=== PATIENT | female | born 1990 | race Caucasian/White ===

== ENCOUNTER 2019-07-05 20:55 | Emergency (ER) | payer SELFPAY ==
[~2019-07-05] VITALS: Ht 170.2 cm; Wt 68.0 kg
[~2019-07-05 20:55] MED LIST: ACET650S13 PO; ACHD5005 PO; ACHYD1T PO; FLUC200T45 PO; IBP800T PO; NITR100C3 PO; PREN1TAB14 PO
[2019-07-05] MEDS ORDERED: NS IV 1000 ML 1,000 ML IV SCH (21:22)
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
[2019-07-05] MEDS ORDERED: KETOROLAC 30 MG/ML VIAL IVP ONE (21:30)
[2019-07-05] MEDS ORDERED: IOHEXOL 350 MG/ML 100 ML (OMNIPAQUE 350) VIAL IV ONE (21:30)
[2019-07-05] MEDS ORDERED: HOLD METFORMIN - RECEIVED CONTRAST 20 ML VIAL IV SCH (21:30)
[2019-07-05] MEDS ORDERED: NS 100 ML (IVPB) BAG IV ONE (21:30)
[2019-07-05 22:00] LABS: BASOPHILS % (AUTO) 0 % (0-10); EOSINOPHILS # (AUTO) 0.1 10^3/uL (0.0-0.3); EOSINOPHILS % (AUTO) 1 % (0-10); HEMATOCRIT 36 % (35-52); HEMOGLOBIN 12.6 G/DL (11.5-16.0); LYMPHOCYTES # (AUTO) 2.8 X 10^3 (1.0-4.0); LYMPHOCYTES % (AUTO) 28 % (12-44); MEAN CORPUSCULAR HEMOGLOBIN 30 PG (25-34); MEAN CORPUSCULAR HGB CONC 36 G/DL (32-36); MEAN CORPUSCULAR VOLUME 86 FL (80-99); MEAN PLATELET VOLUME 10.5 FL (7.4-10.4); MONOCYTES # (AUTO) 0.6 X 10^3 (0.0-1.0); MONOCYTES % (AUTO) 6 % (0-12); NEUTROPHILS # (AUTO) 6.6 X 10^3 (1.8-7.8); NEUTROPHILS % (AUTO) 65 % (42-75); PLATELET COUNT 172 10^3/uL (130-400); WHITE BLOOD COUNT 10.1 10^3/uL (4.3-11.0)
[2019-07-05 22:00] LABS: BILIRUBIN,URINE NEGATIVE (NEGATIVE); CLARITY,URINE SLIGHTLY CLOUDY; COLOR,URINE YELLOW; GLUCOSE, URINE (UA) NEGATIVE (NEGATIVE); KETONES,URINE NEGATIVE (NEGATIVE); LEUKOCYTE ESTERASE ,URINE 1+ (NEGATIVE); NITRITE,URINE NEGATIVE (NEGATIVE); PH,URINE 5 (5-9); PROTEIN,URINE NEGATIVE (NEGATIVE); UROBILINOGEN,URINE NORMAL (NORMAL)
[2019-07-05 22:07] LABS: BACTERIA,URINE FEW /HPF; WBC,URINE RARE /HPF
[2019-07-05 22:07] LABS: ALANINE AMINOTRANSFERASE 24 U/L (0-55); ALBUMIN 4.2 GM/DL (3.2-4.5); ALKALINE PHOSPHATASE 100 U/L (40-136); BILIRUBIN,TOTAL 0.3 MG/DL (0.1-1.0); BUN/CREATININE RATIO 18; CALCIUM 9.3 MG/DL (8.5-10.1); CARBON DIOXIDE 21 MMOL/L (21-32); CHLORIDE 107 MMOL/L (98-107); CREATININE SERUM 0.74 MG/DL (0.60-1.30); GFR ESTIMATED > 60; GLUCOSE 104 MG/DL (70-105); POTASSIUM 3.7 MMOL/L (3.6-5.0); SODIUM 139 MMOL/L (135-145)
[2019-07-05] MEDS ORDERED: HYDROcodone/APAP 5 MG/325 MG (LORTAB) TAB PO ONE (23:00)
[2019-07-05] MEDS ORDERED: ACHD5005 PO (23:45)
[2019-07-05 23:52] VITALS: BP 121/90
--- NOTE | 2019-07-06 07:55 | Diagnostic Imaging Report ---
INDICATION: Chest wall discomfort, trauma chest. TECHNIQUE: Two view chest 2:16 PM CORRELATION STUDY: None FINDINGS: The heart size, mediastinal configuration and pulmonary vasculature are within normal limits. The lungs are clear with no consolidating infiltrate. There is no significant pleural effusion or pneumothorax. No acute displaced fracture. IMPRESSION: 1. No radiographic evidence for acute abnormality of the chest. Dictated by: Dictated on workstation # [id number]
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
== END 2019-07-05 23:53 | disposition home or self-care (01) ==
LOC: EDUNIT# 20:55 → ER 20:57
DX: S20.211A Contusion of right front wall of thorax, initial encounter (principal); R10.9 Unspecified abdominal pain; R40.2142 Coma scale, eyes open, spontaneous, at arrival to emergency department; R40.2252 Coma scale, best verbal response, oriented, at arrival to emergency department; R40.2362 Coma scale, best motor response, obeys commands, at arrival to emergency department; Z88.1 Allergy status to other antibiotic agents; Z88.8 Allergy status to other drugs, medicaments and biological substances; Z90.49 Acquired absence of other specified parts of digestive tract; Y04.2XXA Assault by strike against or bumped into by another person, initial encounter
CPT/HCPCS: 36415; 71046; 74177; 80053; 81000; 84703; 85025; 96361; 96374

== ENCOUNTER 2019-12-08 16:35 | Emergency (ER) | payer MEDICAID ==
[~2019-12-08] VITALS: Ht 165 cm; Wt 70.5 kg
--- NOTE | 2019-12-08 16:49 | ED Chest Pain ---
General Chief Complaint: Chest Pain Stated Complaint: CHEST PAIN Source: patient Exam Limitations: no limitations History of Present Illness Date Seen by Provider: Dec 08, 2019 Time Seen by Provider: 16:43 Initial Comments To ER with reports of sharp left-sided chest pain sudden in onset while standing at work talking. The pain radiates down the left arm. She's had this before but never this bad. Breathing makes the pain worse. Touching the left upper outer ch est makes the pain worse. 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 NTG SL INSTRUCTOR DRAMATIC ARTS: No Associated Symptoms: shortness of breath Allergies and Home Medications Allergies Coded Allergies: clindamycin (Verified Allergy, Unknown, 10/21/07) ranitidine (Verified Allergy, Unknown, 10/21/07) Patient Home Medication List Home Medication List Reviewed: Yes Review of Systems Review of Systems Constitutional: see HPI; No chills, No fever EENTM: No Symptoms Reported Respiratory: See HPI; Denies Cough Cardiovascular: No Symptoms Reported Gastrointestinal: See HPI Genitourinary: No Symptoms Reported Musculoskeletal: see HPI, back pain Skin: no symptoms reported Psychiatric/Neurological: No Symptoms Reported Endocrine: No Symptoms Reported Hematologic/Lymphatic: No Symptoms Reported Past Mfdaxpy-Wbxlsf-Fhzemc Hx Patient Social History Alcohol Use: Occasionally Uses Recreational Drug Use: No Smoking Status: Never a Smoker 2nd Hand Smoke Exposure: No Recent Foreign Travel: No Contact w/Someone Who Travel: No Recent Hopitalizations: Yes (vaginal delivery 2009) Physical Abuse: No Sexual Abuse: No Mistreated: No Fear: No Immunizations Up To Date Date of Pneumonia Vaccine: Sep 29, 2011 Date of Influenza Vaccine: Sep 15, 2011 Past Medical History Surgeries: Yes (appendectomy ) Appendectomy Respiratory: No Cardiac: No Neurological: No Reproductive Disorders: No Sexually Transmitted Disease: Yes (herpes) Genitourinary: No Gastrointestinal: No Musculoskeletal: No Endocrine: No Cancer: No Psychosocial: No Blood Disorders: No Physical Exam Vital Signs Vital Signs - First Documented 12/08/19 16:44 Temp 36.9 Pulse 74 Resp 18 B/P (MAP) 141/70 (93) Pulse Ox 100 O2 Delivery Room Air Capillary Refill : Less Than 3 Seconds Height, Weight, BMI Height: 5'7.00" Weight: 150lbs. oz. 68.426226mp; BMI Method:Stated General Appearance: No Apparent Distress, WD/WN Respiratory: Normal Breath Sounds, No Accessory Muscle Use, No Respiratory Distress, Other (left upper outer chest wall tenderness to palpation) Cardiovascular: Regular Rate, Rhythm, Normal Peripheral Pulses Gastrointestinal: Normal Bowel Sounds, Non Tender, Soft Extremity: Normal Capillary Refill, Normal Inspection Neurologic/Psychiatric: Alert, Oriented x3 Skin: Normal Color, Warm/Dry Progress/Results/Core Measures Results/Orders Lab Results Laboratory Tests Test 12/08/19 16:49 Range/Units White Blood Count 5.0 4.3-11.0 10^3/uL Red Blood Count 4.34 L 4.35-5.85 10^6/uL Hemoglobin 13.0 11.5-16.0 G/DL Hematocrit 37 35-52 % Mean Corpuscular Volume 86 80-99 FL Mean Corpuscular Hemoglobin 30 25-34 PG Mean Corpuscular Hemoglobin Concent 35 32-36 G/DL Red Cell Distribution Width 12.5 10.0-14.5 % Platelet Count 185 130-400 10^3/uL Mean Platelet Volume 9.9 7.4-10.4 FL Neutrophils (%) (Auto) 50 42-75 % Lymphocytes (%) (Auto) 37 12-44 % Monocytes (%) (Auto) 10 0-12 % Eosinophils (%) (Auto) 2 0-10 % Basophils (%) (Auto) 1 0-10 % Neutrophils # (Auto) 2.5 1.8-7.8 X 10^3 Lymphocytes # (Auto) 1.9 1.0-4.0 X 10^3 Monocytes # (Auto) 0.5 0.0-1.0 X 10^3 Eosinophils # (Auto) 0.1 0.0-0.3 10^3/uL Basophils # (Auto) 0.0 0.0-0.1 10^3/uL Prothrombin Time 12.8 12.2-14.7 SEC INR Comment 0.9 0.8-1.4 Activated Partial Thromboplast Time 27 24-35 SEC D-Dimer 0.44 0.00-0.49 UG/ML Sodium Level 138 135-145 MMOL/L Potassium Level 3.6 3.6-5.0 MMOL/L Chloride Level 105 98-107 MMOL/L Carbon Dioxide Level 20 L 21-32 MMOL/L Anion Gap 13 5-14 MMOL/L Blood Urea Nitrogen 12 7-18 MG/DL Creatinine 0.73 0.60-1.30 MG/DL Estimat Glomerular Filtration Rate > 60 BUN/Creatinine Ratio 16 Glucose Level 84 70-105 MG/DL Calcium Level 9.1 8.5-10.1 MG/DL Corrected Calcium 8.9 8.5-10.1 MG/DL Magnesium Level 1.8 1.6-2.4 MG/DL Total Bilirubin 0.3 0.1-1.0 MG/DL Aspartate Amino Transf (AST/SGOT) 32 5-34 U/L Alanine Aminotransferase (ALT/SGPT) 37 0-55 U/L Alkaline Phosphatase 117 40-136 U/L Myoglobin 35.9 10.0-92.0 NG/ML Troponin I < 0.028 <0.028 NG/ML B-Type Natriuretic Peptide < 10.0 <100.0 PG/ML Total Protein 7.4 6.4-8.2 GM/DL Albumin 4.3 3.2-4.5 GM/DL Micro Results Microbiology 12/08/19 Influenza Types A,B Antigen (REY) - Final, Complete My Orders Orders - LAZARO RHODES ENVIRONMENTAL GEOLOGIST Cbc With Automated Diff (12/08/19 16:44) Magnesium (12/08/19 16:44) Chest 1 View, Ap/Pa Only (12/08/19 16:44) Ekg Tracing (12/08/19 16:44) Comprehensive Metabolic Panel (12/08/19 16:44) Myoglobin Serum (12/08/19 16:44) Protime With Inr (12/08/19 16:44) Partial Thromboplastin Time (12/08/19 16:44) O2 (12/08/19 16:44) Monitor-Rhythm Ecg Trace Only (12/08/19 16:44) Lipid Panel (12/09/19 06:00) Ed Iv/Invasive Line Start (12/08/19 16:44) BNP (12/08/19 16:44) Fibrin Degradation Products (12/08/19 16:44) Troponin I (12/08/19 16:44) Influenza A And B Antigens (12/08/19 16:50) Ketorolac Injection (Toradol Injection) (12/08/19 17:00) Medications Given in ED Current Medications Medications Dose Ordered Sig/Saúl Route Start Time Stop Time Status Last Admin Dose Admin Ketorolac Tromethamine 15 mg ONCE ONCE IVP 12/08/19 17:00 12/08/19 17:01 DC 12/08/19 17:17 15 MG Vital Signs/I&O 12/08/19 12/08/19 16:44 16:44 Temp 36.9 Pulse 74 Resp 18 B/P (MAP) 141/70 (93) Pulse Ox 100 O2 Delivery Room Air Departure Impression Primary Impression: Chest wall pain Disposition: HOME, SELF-CARE Condition: Stable Departure-Patient Inst. Decision time for Depature: 17:43 Referrals: ÁLVARO GALLEGOS MD (PCP/Family) Primary Care Physician Patient Instructions: Chest Pain That Is Not Caused by the Heart (DC) Add. Discharge Instructions: 1. Return to ER for any concerns 2. Follow-up with your doctor next week All discharge instructions reviewed with patient and/or family. Voiced understanding. Copy Copies To 1: ÁLVARO GALLEGOS MD, PETER J APRN Dec 08, 2019 16:49
[2019-12-08] MEDS ORDERED: OSEL75CA15 (16:53)
[2019-12-08 16:59] LABS: BASOPHILS % (AUTO) 1 % (0-10); EOSINOPHILS # (AUTO) 0.1 10^3/uL (0.0-0.3); EOSINOPHILS % (AUTO) 2 % (0-10); HEMATOCRIT 37 % (35-52); LYMPHOCYTES # (AUTO) 1.9 X 10^3 (1.0-4.0); LYMPHOCYTES % (AUTO) 37 % (12-44); MEAN CORPUSCULAR HEMOGLOBIN 30 PG (25-34); MEAN CORPUSCULAR HGB CONC 35 G/DL (32-36); MEAN CORPUSCULAR VOLUME 86 FL (80-99); MEAN PLATELET VOLUME 9.9 FL (7.4-10.4); MONOCYTES # (AUTO) 0.5 X 10^3 (0.0-1.0); MONOCYTES % (AUTO) 10 % (0-12); NEUTROPHILS # (AUTO) 2.5 X 10^3 (1.8-7.8); NEUTROPHILS % (AUTO) 50 % (42-75); PLATELET COUNT 185 10^3/uL (130-400); RED CELL DISTRIBUTION WIDTH 12.5 % (10.0-14.5)
[2019-12-08] MEDS ORDERED: KETOROLAC 30 MG/ML VIAL IVP ONE (17:00)
--- NOTE | 2019-12-08 17:05 | Diagnostic Imaging Report ---
EXAMINATION: Chest, 1 view. HISTORY: Chest pain. COMPARISON: 07/05/2019. FINDINGS: The lungs are clear without edema or pneumonia. No pleural effusion or pneumothorax. Heart size is normal. IMPRESSION: Clear lungs. Dictated by: Dictated on workstation # [id number]
[2019-12-08 17:08] LABS: INR 0.9 (0.8-1.4); PROTHROMBIN TIME PATIENT 12.8 SEC (12.2-14.7)
[2019-12-08 17:17] LABS: ALANINE AMINOTRANSFERASE 37 U/L (0-55); ALBUMIN 4.3 GM/DL (3.2-4.5); ALKALINE PHOSPHATASE 117 U/L (40-136); BILIRUBIN,TOTAL 0.3 MG/DL (0.1-1.0); BUN/CREATININE RATIO 16; CALCIUM 9.1 MG/DL (8.5-10.1); CARBON DIOXIDE 20 MMOL/L (21-32); CHLORIDE 105 MMOL/L (98-107); CREATININE SERUM 0.73 MG/DL (0.60-1.30); GFR ESTIMATED > 60; GLUCOSE 84 MG/DL (70-105); MAGNESIUM 1.8 MG/DL (1.6-2.4); POTASSIUM 3.6 MMOL/L (3.6-5.0); SODIUM 138 MMOL/L (135-145); TOTAL PROTEIN 7.4 GM/DL (6.4-8.2)
[2019-12-08 17:59] VITALS: BP 109/62
== END 2019-12-08 17:59 | disposition home or self-care (01) ==
LOC: EDUNIT# 16:35 → ER 16:37
DX: R07.89 Other chest pain (principal); Z88.1 Allergy status to other antibiotic agents; Z88.8 Allergy status to other drugs, medicaments and biological substances; Z90.49 Acquired absence of other specified parts of digestive tract
CPT/HCPCS: 36415; 71045; 80053; 83735; 83874; 83880; 84484; 85025; 85379; 85610; 85730; 87804; 93005; 93041

== ENCOUNTER 2019-12-23 09:20 | Emergency (ER) | payer MEDICAID ==
[~2019-12-23] VITALS: Ht 165.1 cm; Wt 69.0 kg
[~2019-12-23 09:20] MED LIST changes: +OSEL75CA15
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
--- NOTE | 2019-12-23 09:43 | Diagnostic Imaging Report ---
INDICATION: Injury, right foot pain. FINDINGS: 3 views of the right foot shows no fracture, dislocation or other abnormality. IMPRESSION: Normal right foot. Dictated by: Dictated on workstation # [id number]
[2019-12-23] MEDS ORDERED: MELO15TA14 PO (09:48)
[2019-12-23 09:54] VITALS: BP 112/81
== END 2019-12-23 09:53 | disposition home or self-care (01) ==
LOC: EDUNIT# 09:20 → ER 09:21
DX: S93.501A Unspecified sprain of right great toe, initial encounter (principal); S90.31XA Contusion of right foot, initial encounter; Z88.1 Allergy status to other antibiotic agents; Z88.8 Allergy status to other drugs, medicaments and biological substances; W55.89XA Other contact with other mammals, initial encounter
CPT/HCPCS: 73630

== ENCOUNTER 2020-08-25 11:46 | Emergency (ER) | payer MEDICAID ==
[~2020-08-25] VITALS: Ht 162 cm; Wt 66.8 kg
[~2020-08-25 11:46] MED LIST changes: +MELO15TA14 PO
[2020-08-25] MEDS ORDERED: ACETAMINOPHEN 325 MG TABLET PO STA (12:05)
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
--- NOTE | 2020-08-25 12:54 | Diagnostic Imaging Report ---
INDICATION: Wrist pain COMPARISON: None available TECHNIQUE: 3 radiographs of the right wrist dated 08/25/2020. FINDINGS: No acute fracture or dislocation. No destructive osseous process. Carpal alignment is well-maintained. IMPRESSION: No acute osseous abnormality. Dictated by: Dictated on workstation # [id number]
--- NOTE | 2020-08-25 12:54 | Diagnostic Imaging Report ---
INDICATION: Ankle pain COMPARISON: None available TECHNIQUE: 3 radiographs of right ankle dated 08/25/2020. FINDINGS: No acute fracture or dislocation. No destructive osseous process. The talar dome is unremarkable. Ankle mortise is symmetric. No suspicious radiopaque foreign body. Small plantar calcaneal enthesophyte. IMPRESSION: No acute osseous abnormality. Dictated by: Dictated on workstation # [id number]
[2020-08-25 13:14] VITALS: BP 129/70
== END 2020-08-25 13:14 | disposition home or self-care (01) ==
LOC: EDUNIT# 11:46 → ER 11:48
DX: S63.501A Unspecified sprain of right wrist, initial encounter (principal); S93.401A Sprain of unspecified ligament of right ankle, initial encounter; R40.2410 Glasgow coma scale score 13-15, unspecified time; Z88.1 Allergy status to other antibiotic agents; Z88.8 Allergy status to other drugs, medicaments and biological substances; V29.9XXA Motorcycle rider (driver) (passenger) injured in unspecified traffic accident, initial encounter
CPT/HCPCS: 73110; 73610

== ENCOUNTER → 2020-10-30 | Outpatient (CLI) | payer MEDICAID ==
[~2020-10-30] MED LIST changes: +CATHETER FLUSH 10 ML SYR IV PRN
--- NOTE | 2020-10-30 11:33 | Diagnostic Imaging Report ---
Hepatobiliary scan at 8:08. Indication: Abdominal pain This study was performed following administration of 5.4 mCi at 99M technetium Choletec. One can of censure was also administered for the calculation ejection fraction. There are no prior nuclear medicine or ultrasound exams available for comparison. There is uptake of the radiotracer by the gallbladder for 15 minutes. This would weigh against diagnosis of acute cholecystitis. There is also extension of the radiotracer into the small bowel indicating that common bile duct is not obstructed. Ejection fraction is at 81.1% (normal greater than 35%). Impression: 1. There is no evidence for acute cholecystitis or for obstruction of the common bile duct. 2. The ejection fraction is 81.1% and well within normal limits. Dictated by: Dictated on workstation # [id number]
== END ==
LOC: CARD 09:00
PROVIDERS: ATTEND Nurse Practitioner Family
DX: R10.9 Unspecified abdominal pain (principal); R11.2 Nausea with vomiting, unspecified
CPT/HCPCS: 78227; A9537

== ENCOUNTER → 2020-11-12 | Outpatient (CLI) | payer MEDICAID ==
[~2020-11-12] MED LIST changes: -CATHETER FLUSH 10 ML SYR IV PRN; +HOLD METFORMIN - RECEIVED CONTRAST 20 ML VIAL IV SCH; +IOHEXOL 350 MG/ML 100 ML (OMNIPAQUE 350) VIAL IV ONE; +NS 100 ML (IVPB) BAG IV ONE
[2020-11-12 08:04] LABS: BUN/CREATININE RATIO 18; GFR ESTIMATED > 60
--- NOTE | 2020-11-12 09:19 | Diagnostic Imaging Report ---
PROCEDURE: CT abdomen and pelvis with contrast. TECHNIQUE: Multiple contiguous axial images were obtained through the abdomen and pelvis after administration of intravenous contrast. Auto Exposure Controls were utilized during the CT exam to meet ALARA standards for radiation dose reduction. All CT scans use one or more of the following dose optimizing techniques: automated exposure control, MA and/or KvP adjustment based on patient size and exam type or iterative reconstruction. INDICATION: Abdominal pain and weight loss. COMPARISON: 07/05/2019. FINDINGS: The lung bases are clear. The liver and gallbladder are unremarkable. There is no biliary ductal dilatation or mass. The pancreas and spleen are unremarkable. No adrenal mass is identified. The kidneys are unremarkable. The aorta is non-aneurysmal. No central retroperitoneal or mesenteric lymphadenopathy is identified. The small and large bowel loops are of normal caliber. There is no obstruction. There is an IUD within the uterus. The bladder is decompressed. No pelvic lymphadenopathy is identified. The bony structures are unremarkable. IMPRESSION: Unremarkable CT of the abdomen and pelvis with contrast. Dictated by: Dictated on workstation # [id number]
== END ==
LOC: RAD 08:15
PROVIDERS: ATTEND Surgery
DX: R10.9 Unspecified abdominal pain (principal); R63.4 Abnormal weight loss
CPT/HCPCS: 36415; 74177; 82565; 84520

== ENCOUNTER → 2021-01-01 | Outpatient (CLI) | payer MEDICAID ==
[~2021-01-01] MED LIST changes: -HOLD METFORMIN - RECEIVED CONTRAST 20 ML VIAL IV SCH; -IOHEXOL 350 MG/ML 100 ML (OMNIPAQUE 350) VIAL IV ONE; -NS 100 ML (IVPB) BAG IV ONE
--- NOTE | 2021-01-01 10:33 | Diagnostic Imaging Report ---
PROCEDURE: US Non-ob pelvis comp/trans. TECHNIQUE: Multiple realtime grayscale images were obtained of the pelvis in various projections endovaginally. Transabdominal imaging was also performed. INDICATION: Pelvic pain. FINDINGS: The previous pelvic ultrasound exam of 12/10/2007 failed to show any sign of an acute abnormality. On this exam, the uterus is nongravid and anteverted and not enlarged measuring 8.7 x 4.1 x 4.6 cm. The endometrial lining is slightly thickened measuring 12 mm (normal 5 mm or less). This finding is nonspecific. Correlation with the patient's menstrual cycle would be recommended. There is an IUD within the endometrium in the body/fundus of the uterus. The IUD seems to be in good position. Both ovaries were identified. There is a 2.0 x 1.8 x 1.5 cm hypoechoic lesion with internal echoes associated with the right ovary. I suspect that this is an ovarian cyst which has been complicated by infection and/or hemorrhage. The left ovary is generally unremarkable. There is no solid pelvic mass or free fluid collection noted. IMPRESSION: 1. There is a small slightly complicated cyst associated with the right ovary. There is no acute pelvic abnormality noted, otherwise. 2. If further evaluation is desired, then a short-term (4-6 week) follow-up exam would be recommended. 3. There is an IUD within the endometrium of the body/fundus of the uterus. The IUD seems to be in good position. Dictated by: Dictated on workstation # [id number]
== END ==
LOC: RAD 09:00
PROVIDERS: ATTEND Surgery
DX: N83.201 Unspecified ovarian cyst, right side (principal)
CPT/HCPCS: 76830; 76856

== ENCOUNTER 2021-07-10 23:53 | Emergency (ER) | payer MEDICAID ==
[~2021-07-10] VITALS: Ht 163 cm; Wt 59.9 kg
[2021-07-11] MEDS ORDERED: ONDANSETRON 4 MG/2 ML (SDV) Z0FRAN IVP ONE (00:15)
[2021-07-11] MEDS ORDERED: LACTATED RINGERS 1,000 ML IV ONE (00:15)
[2021-07-11 00:32] LABS: ALBUMIN 4.2 GM/DL (3.2-4.5); POTASSIUM 3.3 MMOL/L (3.6-5.0)
[2021-07-11 00:34] LABS: CALCIUM 9.5 MG/DL (8.5-10.1)
[2021-07-11 00:35] LABS: TOTAL PROTEIN 7.2 GM/DL (6.4-8.2)
[2021-07-11 00:37] LABS: BILIRUBIN,TOTAL 0.9 MG/DL (0.1-1.0)
[2021-07-11 00:39] LABS: CREATININE SERUM 0.74 MG/DL (0.60-1.30)
[2021-07-11 00:41] LABS: BASOPHILS % (AUTO) 0 % (0-10); MAGNESIUM 1.6 MG/DL (1.6-2.4); MEAN CORPUSCULAR HEMOGLOBIN 31 pg (25-34); MEAN CORPUSCULAR HGB CONC 35 g/dL (32-36)
[2021-07-11 00:43] LABS: EOSINOPHILS % (AUTO) 0 % (0-10); HEMATOCRIT 39 % (35-52); HEMOGLOBIN 13.6 g/dL (11.5-16.0); LYMPHOCYTES # (AUTO) 1.2 10^3/uL (1.0-4.0); LYMPHOCYTES % (AUTO) 11 % (12-44); MEAN CORPUSCULAR VOLUME 88 fL (80-99); MEAN PLATELET VOLUME 10.6 fL (9.0-12.2); MONOCYTES # (AUTO) 0.5 10^3/uL (0.0-1.0); MONOCYTES % (AUTO) 5 % (0-12); NEUTROPHILS # (AUTO) 9.1 10^3/uL (1.8-7.8); NEUTROPHILS % (AUTO) 84 % (42-75); PLATELET COUNT 143 10^3/uL (130-400); WHITE BLOOD COUNT 10.9 10^3/uL (4.3-11.0)
--- NOTE | 2021-07-11 00:51 | ED Cough/URI ---
General Chief Complaint: Cough/Cold/Flu Symptoms Stated Complaint: VOMITING,CONGESTION Nursing Triage Note: PT TO RM 8 VIA WC W C/O SINUS PRESSURE, NASAL CONGESTION, AND N/V SX THIS AM. 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 Source: patient History of Present Illness Date Seen by Provider: Jul 11, 2021 Time Seen by Provider: 00:03 Initial Comments PT ARRIVES VIA POV FROM HOME STATES SHE WOKE UP THIS AM WITH NASAL CONGESTION ABOUT 2 HOURS AGO, SHE BEGAN HAVING NAUSEA/"VOMITING"--ACTUALLY ONLY DRY HEAVES NO DIARRHEA NO ABDOMINAL PAIN NO FEVER NO SIGNIFICANT COUGH NO LOSS OF TASTE/SMELL NO HEADACHE NO BODY ACHES NO SORE THROAT NO FATIGUE PT HAS NOT BEEN VACCINATED FOR COVID-19 PT WORKS AT [employer] NO CHRONIC ILLNESSES LIVES AT HOME WITH AND 5 CHILDREN--ALL OF THEM HAD NAUSEA/VOMITING AND HEADACHE ON WEDNESDAY, ALL GOT TESTED THE SAME DAY FOR COVID AND ALL NEGATIVE. PCP: DR. GALLEGOS Allergies and Home Medications Allergies Coded Allergies: latex (Verified Allergy, Severe, SWELLING, 07/11/21) clindamycin (Verified Allergy, Unknown, 10/21/07) ranitidine (Verified Allergy, Unknown, 10/21/07) Home Medications Meloxicam 15 Mg Tablet, 15 MG PO DAILY Prescribed by: ÁLVARO WILKINSON on 12/23/19 0948 Ondansetron 4 Mg Tab.rapdis, 4 MG PO Q4H Prescribed by: ÁLVARO WILKINSON on 07/11/21 0101 Patient Home Medication List Home Medication List Reviewed: Yes Review of Systems Review of Systems Constitutional: no symptoms reported EENTM: see HPI, nose congestion; No throat pain Respiratory: no symptoms reported; No cough, No short of breath Cardiovascular: no symptoms reported Gastrointestinal: see HPI; No abdominal pain, No diarrhea; nausea, vomiting Genitourinary: no symptoms reported; No decreased output : No (IUD IN PLACE) LMP: Jun 25, 2021 Musculoskeletal: no symptoms reported Skin: no symptoms reported Psychiatric/Neurological: No Symptoms Reported Hematologic/Lymphatic: No Symptoms Reported Immunological/Allergic: no symptoms reported Past Skjrmmw-Ksnmhp-Whtbpw Hx Patient Social History Tobacco Use?: No Smoking Status: Never a Smoker Substance use?: No Alcohol Use?: Yes Alcohol Frequency: Once in a while Pt feels they are or have been: No Past Medical History Surgery/Hospitalization HX: CHOLECYSTECTOMY APPENDECTOMY Surgeries: Yes Appendectomy, Gallbladder Respiratory: No Cardiac: No Neurological: No Last Menstrual Period: Jun 25, 2021 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 oz. 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, no motor/sensory deficits, alert, normal mood/affect, oriented x 3 Skin: normal color, warm/dry; No rash; tattoos/piercings Progress/Results/Core Measures Suspected Sepsis SIRS Temperature: Pulse: 89 Respiratory Rate: 18 Laboratory Tests 07/11/21 00:05: White Blood Count 10.9 Blood Pressure 106 /68 Mean: 81 Laboratory Tests 07/11/21 00:05: Creatinine 0.74, Platelet Count 143, Total Bilirubin 0.9 Results/Orders Lab Results Laboratory Tests Test 07/11/21 00:05 Range/Units White Blood Count 10.9 4.3-11.0 10^3/uL Red Blood Count 4.40 3.80-5.11 10^6/uL Hemoglobin 13.6 11.5-16.0 g/dL Hematocrit 39 35-52 % Mean Corpuscular Volume 88 80-99 fL Mean Corpuscular Hemoglobin 31 25-34 pg Mean Corpuscular Hemoglobin Concent 35 32-36 g/dL Red Cell Distribution Width 11.6 10.0-14.5 % Platelet Count 143 130-400 10^3/uL Mean Platelet Volume 10.6 9.0-12.2 fL Immature Granulocyte % (Auto) 0 % Neutrophils (%) (Auto) 84 H 42-75 % Lymphocytes (%) (Auto) 11 L 12-44 % Monocytes (%) (Auto) 5 0-12 % Eosinophils (%) (Auto) 0 0-10 % Basophils (%) (Auto) 0 0-10 % Neutrophils # (Auto) 9.1 H 1.8-7.8 10^3/uL Lymphocytes # (Auto) 1.2 1.0-4.0 10^3/uL Monocytes # (Auto) 0.5 0.0-1.0 10^3/uL Eosinophils # (Auto) 0.0 0.0-0.3 10^3/uL Basophils # (Auto) 0.0 0.0-0.1 10^3/uL Immature Granulocyte # (Auto) 0.0 0.0-0.1 10^3/uL Percent Immature Platelet Fraction 3.0 0.0-7.6 % Erythrocyte Sedimentation Rate 11 0-20 MM/HR Sodium Level 139 135-145 MMOL/L Potassium Level 3.3 L 3.6-5.0 MMOL/L Chloride Level 105 98-107 MMOL/L Carbon Dioxide Level 23 21-32 MMOL/L Anion Gap 11 5-14 MMOL/L Blood Urea Nitrogen 9 7-18 MG/DL Creatinine 0.74 0.60-1.30 MG/DL Estimat Glomerular Filtration Rate 91 BUN/Creatinine Ratio 12 Glucose Level 111 H 70-105 MG/DL Calcium Level 9.5 8.5-10.1 MG/DL Corrected Calcium 9.3 8.5-10.1 MG/DL Magnesium Level 1.6 1.6-2.4 MG/DL Total Bilirubin 0.9 0.1-1.0 MG/DL Aspartate Amino Transf (AST/SGOT) 29 5-34 U/L Alanine Aminotransferase (ALT/SGPT) 44 0-55 U/L Alkaline Phosphatase 75 40-136 U/L Total Creatine Kinase 72 29-168 U/L C-Reactive Protein High Sensitivity 0.68 H 0.00-0.50 MG/DL Total Protein 7.2 6.4-8.2 GM/DL Albumin 4.2 3.2-4.5 GM/DL Procalcitonin 0.02 <0.10 NG/ML Serum Test, Qualitative NEGATIVE NEGATIVE Influenza Type A (RT-PCR) Not Detected Not Detecte Influenza Type B (RT-PCR) Not Detected Not Detecte SARS-CoV-2 RNA (RT-PCR) Not Detected Not Detecte My Orders Orders - ÁLVARO WILKINSON DO Ed Iv/Invasive Line Start (07/11/21 00:04) Chest 1 View, Ap/Pa Only (07/11/21 00:04) Comprehensive Metabolic Panel (07/11/21 00:04) Creatine Kinase (07/11/21 00:04) Hs C Reactive Protein (07/11/21 00:04) Hcg,Qualitative Serum (07/11/21 00:04) Magnesium (07/11/21 00:04) Erythrocyte Sedimentation Rate (07/11/21 00:04) Ed Iv/Invasive Line Start (07/11/21 00:04) Lactated Ringers (Lr 1000 Ml Iv Solution (07/11/21 00:15) Ondansetron Injection (Zofran Injectio (07/11/21 00:15) Procalcitonin (Pct) (07/11/21 00:04) Covid 19 Inhouse Test (07/11/21 00:04) Influenza A And B By Pcr (07/11/21 00:04) Isolation Central Supply Req (07/11/21 00:04) Cbc With Automated Diff (07/11/21 00:36) Rx-Ondansetron Po (Rx-Zofran Po) (07/11/21 01:05) Medications Given in ED Current Medications Medications Dose Ordered Sig/Saúl Route Start Time Stop Time Status Last Admin Dose Admin Lactated Ringer's 1,000 ml @ 0 mls/hr Q0M ONCE IV 07/11/21 00:15 07/11/21 00:16 DC 07/11/21 00:19 0 MLS/HR Ondansetron HCl 4 mg ONCE ONCE IVP 07/11/21 00:15 07/11/21 00:16 DC 07/11/21 00:19 4 MG Vital Signs/I&O 07/11/21 07/11/21 00:06 00:06 Temp 37.0 Pulse 89 Resp 18 B/P (MAP) 106/68 (81) Pulse Ox 98 O2 Delivery Room Air Room Air Capillary Refill : Less Than 3 Seconds Blood Pressure Mean: 81 Progress Note : Progress Note PLACED IN ISOLATION ROOM PPE WORN AT ALL TIMES COVID-19 TESTING PERFORMED GIVEN IV FLUIDS AND ZOFRAN WITH IMPROVEMENT IN SYMPTOMS NO FEVER NO COUGH NO DYSPNEA NO HYPOXIA NO VOMITING OR DIARRHEA Diagnostic Imaging Comments CXR--NO ACUTE PROCESS, PENDING RADIOLOGIST REVIEW Reviewed: Reviewed by Me Departure Impression Primary Impression: Person under investigation for COVID-19 Additional Impressions: Upper respiratory infection Nausea & vomiting Disposition: 01 HOME, SELF-CARE Condition: Stable Departure-Patient Inst. Decision time for Depature: 01:00 Referrals: ÁLVARO GALLEGOS MD (PCP/Family) Primary Care Physician Patient Instructions: COVID-19 Tests, Preventing the Spread of an Infectious Disease, Viral Upper Respiratory Infection, Adult (DC), Nausea and Vomiting, Adult (DC) Add. Discharge Instructions: TYLENOL AND MOTRIN NEEDED FOR PAIN OR FEVER OVER THE COUNTER MEDICATIONS FOR COUGH AND CONGESTION LOTS OF CLEAR LIQUIDS--WATER, BROTH, JELLO, GATORADE QUARANTINE UNTIL YOU ARE RECHECKED AND CLEARED BY YOUR DR YOU NEED TO BE RE-TESTED FOR COVID-19 IN 2-3 DAYS RETURN TO ER IF SYMPTOMS WORSEN All discharge instructions reviewed with patient and/or family. Voiced understanding. Scripts Ondansetron (Ondansetron Odt) 4 Mg Tab.rapdis 4 MG PO Q4H for Nausea/Vomiting, #10 TAB Prov: ÁLVARO WILKINSON DO 07/11/21 ÁLVARO WILKINSON DO Jul 11, 2021 00:51
[2021-07-11] MEDS ORDERED: ONDA4TAB11 PO (01:01)
[2021-07-11] MEDS ORDERED: RX-ONDANSETRON 4 MG ODT (ZOFRAN) PPK #4 PO STA (01:05)
[2021-07-11 01:14] VITALS: BP 110/72
--- NOTE | 2021-07-11 06:03 | Diagnostic Imaging Report ---
INDICATION: Chest pain COMPARISON: 12/08/2019 FINDINGS: Single view of the chest demonstrates clear lungs bilaterally. The heart is normal. There is no pneumothorax. The osseous structures are age-appropriate. IMPRESSION: Negative chest Dictated by: Dictated on workstation # [id number]
== END 2021-07-11 01:14 | disposition home or self-care (01) ==
LOC: EDUNIT# 23:53 → ER 23:57
DX: J06.9 Acute upper respiratory infection, unspecified (principal); R11.2 Nausea with vomiting, unspecified; Z90.49 Acquired absence of other specified parts of digestive tract; Z20.822 Contact with and (suspected) exposure to COVID-19
CPT/HCPCS: 36415; 71045; 80053; 82550; 83735; 84145; 84703; 85025; 85652; 86141; 87636

== ENCOUNTER → 2021-12-17 | Outpatient (CLI) | payer MEDICAID ==
[~2021-12-17] MED LIST changes: +ONDA4TAB11 PO
--- NOTE | 2021-12-17 10:31 | Diagnostic Imaging Report ---
PROCEDURE: CT abdomen without contrast. TECHNIQUE: Multiple contiguous axial images were obtained through the abdomen without the use of intravenous contrast. Auto Exposure Controls were utilized during the CT exam to meet ALARA standards for radiation dose reduction. INDICATION: Left upper quadrant pain. COMPARISON: CT abdomen and pelvis of 11/12/2020. FINDINGS: There is no abdominal wall hernia. Abdominal wall musculature is normal in appearance. No free intraperitoneal air or fluid. Lung bases are clear. No pericardial or pleural effusion. Unenhanced liver is grossly normal. Cholecystectomy. No biliary duct dilatation. The spleen and pancreas are grossly normal. There is no adrenal mass. No renal stones or obstructive uropathy. No dilated loops of bowel or pericolonic inflammatory change. No concerning focal osseous lesion. IMPRESSION: 1. No abdominal hernia. 2. No intraperitoneal abnormality. Dictated by: Dictated on workstation # [id number]
== END ==
LOC: RAD 09:45
PROVIDERS: ATTEND Surgery
DX: R10.12 Left upper quadrant pain (principal)
CPT/HCPCS: 74150

== ENCOUNTER 2022-09-08 17:28 | Emergency (ER) | payer MEDICAID ==
[~2022-09-08] VITALS: Ht 162.5 cm; Wt 67.0 kg
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
--- NOTE | 2022-09-08 18:16 | Diagnostic Imaging Report ---
Indication: Pain in the region of the 5th metacarpal. Time of Exam: 5:58 PM Three views of the right hand were obtained. Metacarpals appear intact. Phalanges are intact. Carpus is unremarkable. No fractures are seen. IMPRESSION: No acute bony abnormality is detected. Dictated by: Dictated on workstation # [id number]
--- NOTE | 2022-09-08 18:28 | ED Upper Extremity ---
General Chief Complaint: Upper Extremity Stated Complaint: R WRIST PAIN,POSSIBLE FRACTURE Nursing Triage Note: PT AMB TO TRIAGE WITH COMPLAINT OF RIGHT WRIST/HAND PAIN. STATES ON WEDNESDAY SHE PUNCHED A WALL. WENT TO WALK IN CLINIC YESTERDAY, BUT WAS UNABLE TO HAVE X RAYS. STATES PAIN IS WORSENING. History of Present Illness Date Seen by Provider: Sep 08, 2022 Time Seen by Provider: 17:40 Initial Comments 32-year-old female reports punching a wall on 09/05/2022. Since then she has been having pain at the fourth metacarpal and wrist, right UE. She reports a previous fracture to her right wrist. No other abnormalities. She has been wearing a thumb spica splint and alternating Tylenol and ibuprofen with control of her pain. Pain/Injury Location: right wrist, right hand Method of Injury: direct blow Allergies and Home Medications Allergies Coded Allergies: latex (Verified Allergy, Severe, SWELLING, 07/11/21) clindamycin (Verified Allergy, Unknown, 10/21/07) ranitidine (Verified Allergy, Unknown, 10/21/07) Patient Home Medication List Home Medication List Reviewed: Yes Meloxicam (Mobic) 15 Mg Tablet, 15 MG PO DAILY Prescribed by: ÁLVARO WILKINSON on 12/23/19 0948 Ondansetron (Ondansetron Odt) 4 Mg Tab.rapdis, 4 MG PO Q4H Prescribed by: ÁLVARO WILKINSON on 07/11/21 0101 Oseltamivir Phosphate (Oseltamivir Phosphate) 75 Mg Capsule, (Reported) Entered as Reported by: VALENCIA GUTIERREZ on 12/08/19 1653 Review of Systems Constitutional: no symptoms reported, see HPI Musculoskeletal: see HPI, joint pain (Right wrist and right hand) All Other Systems Reviewed Negative Unless Noted: Yes Past Mlzcola-Qfsqyu-Sggbzk Hx Patient Social History Tobacco Use?: No Use of E-Cig and/or Vaping dev: No Substance use?: No Alcohol Use?: No Pt feels they are or have been: No Past Medical History Surgery/Hospitalization HX: CHOLECYSTECTOMY APPENDECTOMY Surgeries: Yes Appendectomy, Gallbladder Respiratory: No Cardiac: No Neurological: No Reproductive Disorders: No 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 oz. 68.702619qc; 25.00 BMI Method:Stated General Appearance: WD/WN, no apparent distress Cardiovascular: normal peripheral pulses, regular rate, rhythm Respiratory: chest non-tender, lungs clear, normal breath sounds Wrist: Yes normal inspection (Right), Yes bone tenderness; No deformity; Yes limited ROM, Yes pain, Yes soft tissue tenderness; No swelling Hand: normal inspection, no evidence of injury, normal ROM, Right, bone tenderness (Fourth metacarpal) Neurologic/Psychiatric: no motor/sensory deficits, alert, normal mood/affect, oriented x 3 Skin: normal color, warm/dry Progress/Results/Core Measures Results/Orders My Orders Orders - JANNETH ALTAMIRANO Wrist, Right, 3 Views Or More (09/08/22 17:50) Hand, Right, 3 Views (09/08/22 17:50) Vital Signs/I&O 09/08/22 09/08/22 17:40 18:35 Temp 36.5 36.5 Pulse 68 64 Resp 16 16 B/P (MAP) 107/75 (86) 110/74 Pulse Ox 98 98 O2 Delivery Room Air Room Air Blood Pressure Mean: 86 Diagnostic Imaging Diagonstic Imaging: Xray Plain Films/CT/US/NM/MRI: other (wrist) Comments NAME: ANTOINE CHOWDHURY [facility] REC#: [id number] PT STATUS: REG ER : 1990 PHYSICIAN: JANNETH ALTAMIRANO ADMIT DATE: 09/08/22/ER Draft Date of Exam:09/08/22 WRIST, RIGHT, 3 VIEWS OR MORE INDICATION: Medial wrist pain. Punched a wall. FINDINGS: The distal radius and ulna are unremarkable without fracture or cortical disruption. The carpals are normally aligned. There is no carpal fracture. The visualized portions of the hand including the fifth and fourth metacarpals are unremarkable. There is no focal soft tissue abnormality. IMPRESSION: Negative radiographs of the right wrist. Dictated on workstation # [id number] Dict: 09/08/221811 Trans: 09/08/221814 [id number] Interpreted by: MOMO DE SANTIAGO MD Electronically signed by: Diagonstic Imaging: Xray Plain Films/CT/US/NM/MRI: hand Comments NAME: ANTOINE CHOWDHURY [facility] REC#: [id number] PT STATUS: REG ER : 1990 PHYSICIAN: JANNETH ALTAMIRANO ADMIT DATE: 09/08/22/ER Draft Date of Exam:09/08/22 HAND, RIGHT, 3 VIEWS Indication: Pain in the region of the 5th metacarpal. Time of Exam: 5:58 PM Three views of the right hand were obtained. Metacarpals appear intact. Phalanges are intact. Carpus is unremarkable. No fractures are seen. IMPRESSION: No acute bony abnormality is detected. Dictated on workstation # [id number] Dict: 09/08/221811 Trans: 09/08/221814 [facility] [id number] Interpreted by: EVON LEMUS MD Electronically signed by: Reviewed: Reviewed by Me Departure Impression Primary Impression: Contusion of hand Qualified Codes: S60.221A - Contusion of right hand, initial encounter Additional Impression: Contusion of wrist Qualified Codes: S60.211A - Contusion of right wrist, initial encounter Disposition: 01 HOME, SELF-CARE Condition: Improved Departure-Patient Inst. Decision time for Depature: 18:15 Referrals: ÁLVARO GALLEGOS MD (PCP/Family) Primary Care Physician Patient Instructions: Wrist Sprain (DC) Add. Discharge Instructions: Continue wrist splint as needed for discomfort. Continue alternating Tylenol and ibuprofen every 4 hours for pain. Ice to right wrist and right hand as needed for pain. Follow-up with your primary care provider if symptoms or not improving or worsen. Return to the emergency department for new, urgent healthcare needs. All discharge instructions reviewed with patient and/or family. Voiced understanding. JANNETH ALTAMIRANO Sep 08, 2022 18:28
[2022-09-08 18:35] VITALS: BP 110/74
== END 2022-09-08 18:37 | disposition home or self-care (01) ==
LOC: EDUNIT# 17:28 → ER 17:30
DX: S60.211A Contusion of right wrist, initial encounter (principal); Z91.040 Latex allergy status; W22.01XA Walked into wall, initial encounter
CPT/HCPCS: 73110; 73130